=== PATIENT | female | born 1990 | race Caucasian/White ===

== ENCOUNTER 2016-10-27 16:32 | Emergency (ER) | payer OTHER | END 2016-10-27 19:40 | disposition left against medical advice (07) | LOC: ER1 16:32 | DX: Z53.21 Procedure and treatment not carried out due to patient leaving prior to being seen by health care provider (principal) ==

== ENCOUNTER 2021-06-23 21:27 | Outpatient (CLI) | payer OTHER | END 2021-06-24 | disposition home or self-care (01) | LOC: GENOP 21:27 | DX: O99.891 Other specified diseases and conditions complicating pregnancy (principal); N89.8 Other specified noninflammatory disorders of vagina; Z3A.28 28 weeks gestation of pregnancy; R10.30 Lower abdominal pain, unspecified | CPT/HCPCS: 81001; 82731; 96372; G0463; J0702 ==